=== PATIENT | female | born 1955 | race Caucasian/White ===

== ENCOUNTER → 2016-09-13 | Outpatient (CLI) | payer BC ==
--- NOTE | 2016-09-14 09:22 | MM ---
Reason for exam: screening (asymptomatic). Last mammogram was performed 1 year and 11 months ago. History: Patient is postmenopausal. Family history of breast cancer in paternal cousin. Physical Findings: A clinical breast exam by your physician is recommended on an annual basis and results should be correlated with mammographic findings. MG Screening Mammo w CAD Bilateral CC and MLO view(s) were taken. Prior study comparison: October 27, 2014, bilateral MG screening mammo w CAD. July 04, 2012, bilateral digital screening mammo w/CAD. The breast tissue is almost entirely fat. No significant changes when compared with prior studies. ASSESSMENT: Benign, BI-RAD 2 RECOMMENDATION: Routine screening mammogram of both breasts in 1 year.
== END | disposition home or self-care (01) ==
LOC: RADMAMWWP 08:28
PROVIDERS: ATTEND Internal Medicine
DX: Z12.31 Encounter for screening mammogram for malignant neoplasm of breast (principal)

== ENCOUNTER 2016-09-18 10:49 | Day surgery (SDC) | payer BC ==
[2016-09-15 10:48] VITALS: BMI 18.3
[~2016-09-18 10:49] MED LIST: LACTATED RINGERS 1,000 ML IV SCH; LIDOCAINE 1% 20 ML VIAL (10MG/ML) FOR IV START INTRADERMA PRN
[2016-09-18 11:51] VITALS: TEMP 97
[2016-09-18] MEDS ORDERED: PROPOFOL 10 MG/ML 20 ML VIAL IV ONE (12:41)
--- NOTE | 2016-09-18 12:46 | P.GSHP ---
History of Present Illness H&P Date: 09/18/16 Chief Complaint: GI bleed This 60-year-old female referred from Dr. Joyce. Patient presents today for colonoscopy. She's had evidence of GI bleed. Past Medical History Past Medical History: Hypertension Additional Past Medical History / Comment(s): HX NECK FRACTURE, currently taking antibiotics for sinus infection. GOUT History of Any Multi-Drug Resistant Organisms: None Reported Past Surgical History: Joint Replacement Additional Past Surgical History / Comment(s): LEFT SHOULDER REPLACEMENT Past Anesthesia/Blood Transfusion Reactions: No Reported Reaction Past Psychological History: No Psychological Hx Reported Smoking Status: Current some day smoker - Past Family History Brother(s) Family Medical History: Cancer Medications and Allergies Home Medications Medication Instructions Recorded Confirmed Type Multivitamins, Thera [Multivitamin] 1 each PO DAILY@1200 10/19/13 09/18/16 History Alendronate Sodium [Fosamax] 70 mg PO MO 11/06/15 09/18/16 History Azithromycin [Zithromax Z-pack] 250 mg PO DIRECTED 09/15/16 09/18/16 History Naproxen Sodium [Naproxen Sodium 500 mg PO BID PRN 09/15/16 09/18/16 History ER] Triamterene/Hydrochlorothiazid 1 each PO DAILY 09/15/16 09/18/16 History [Triamterene-Hctz 37.5-25 mg Tb] Allergies Allergy/AdvReac Type Severity Reaction Status Date / Time No Known Allergies Allergy Verified 09/18/16 11:46 Surgical - Exam Vital Signs Temp Pulse Resp BP Pulse Ox 97.0 F L 67 18 170/83 98 09/18/16 11:50 09/18/16 11:50 09/18/16 11:50 09/18/16 11:50 09/18/16 11:50 - General well developed, no distress - Eyes PERRL - ENT normal pinna - Neck no masses - Respiratory normal expansion - Cardiovascular Rhythm: regular - Abdomen Abdomen: soft, non tender Assessment and Plan Plan: GI bleed. We'll perform colonoscopy.
--- NOTE | 2016-09-18 13:05 | P.OP ---
Date of Procedure: 09/18/16 Preoperative Diagnosis: GI bleed Postoperative Diagnosis: Rectal polyp Incomplete colonoscopy Procedure(s) Performed: Colonoscopy Implants: Anesthesia: MAC Surgeon: Otoniel Stephenson Pathology: other (Rectal polyp) Condition: stable Disposition: PACU Indications for Procedure: Operative Findings: Description of Procedure: The patient's placed on the endoscopy table in the lateral position she received IV sedation. Digital rectal exam was performed which revealed no abnormalities. The flexible colonoscope was then placed patient anus and passed throughout colon. Scope could not pass beyond the sigmoid colon secondary to tortuosity valve. This point the scope was withdrawn. There were diverticuli noted. In the pediatric scope was inserted. Once again, the pediatric scope could not be passed beyond 30 cm due to tortuosity bowel. The scope was withdrawn. At the 20 cm dick there was a polyp seen this was removed the forcep. Scope was withdrawn for patient. Patient was scheduled for a barium enema.
[2016-09-18 13:14] VITALS: RESP 16
[2016-09-18 13:35] VITALS: BP 141/82; PULSE 65
== END 2016-09-18 14:01 | disposition home or self-care (01) ==
LOC: ORWHC2ENDO 10:49
PROVIDERS: ATTEND Surgery
DX: K62.1 Rectal polyp (principal); Q43.8 Other specified congenital malformations of intestine; I10 Essential (primary) hypertension; F17.200 Nicotine dependence, unspecified, uncomplicated; Z79.899 Other long term (current) drug therapy
CPT/HCPCS: 88305; 45331; J2704; 45380

== ENCOUNTER → 2016-09-25 | Outpatient (CLI) | payer BC ==
--- NOTE | 2016-09-25 13:40 | FL ---
EXAMINATION TYPE: FL barium enema w air contrast DATE OF EXAM: 09/25/2016 COMPARISON: EXAMINATION TYPE: FL barium enema w air contrast DATE OF EXAM: 09/25/2016 COMPARISON: NONE HISTORY: Incomplete colonoscopy TECHNIQUE: A double contrast barium enema study is performed. FINDINGS: Crime Lab Technician view of the abdomen shows overall non-obstructive bowel gas pattern. Severe scoliosi s is present. No suspicious filling defects are evident. No circumferential area of narrowing is present. The brooke cral space is normal. There is redundancy through the sigmoid colon. Couple of diverticuli without ac [place] diverticulitis are present. Reflux into the terminal ileum is evident. There is normal post void residual. IMPRESSION: Normal air-contrast barium enema study.
== END | disposition home or self-care (01) ==
LOC: RADFLMAIN 11:02
PROVIDERS: ATTEND Surgery
DX: K92.1 Melena (principal)
CPT/HCPCS: 74280

== ENCOUNTER → 2017-09-03 | Outpatient (CLI) | payer BC ==
--- NOTE | 2017-09-03 16:16 | US ---
EXAMINATION TYPE: US venous doppler duplex LE BI DATE OF EXAM: 09/03/2017 4:09 PM COMPARISON: NONE CLINICAL HISTORY: M79.661 Pain In Limb R22.41 Swelling. SIDE PERFORMED: Bilateral TECHNIQUE: The lower extremity deep venous system is examined utilizing real time linear array sonog pierre with graded compression, doppler sonography and color-flow sonography. VESSELS IMAGED: External Iliac Vein (EIV) Common Femoral Vein Deep Femoral Vein Greater Saphenous Vein * Femoral Vein Popliteal Vein Small Saphenous Vein * Proximal Calf Veins (* superficial vessels) Right Leg: Negative for DVT Left Leg: Negative for DVT Preliminary results phoned to Dr. Joyce's office immediately following exam. Spoke with Elvi. Grayscale, color doppler, spectral doppler imaging performed of the deep veins of the bilateral lowe r extremities. There is normal flow, compressibility, vascular waveforms. IMPRESSION: No ultrasound evidence for acute DVT in either lower extremity.
== END | disposition home or self-care (01) ==
LOC: RADUSWWP 15:30
PROVIDERS: ATTEND Internal Medicine
DX: M79.661 Pain in right lower leg (principal); R22.41 Localized swelling, mass and lump, right lower limb
CPT/HCPCS: 93970

== ENCOUNTER → 2018-03-15 | Outpatient (CLI) | payer BC ==
[2018-03-15 16:55] LABS: Folate, Serum >24.0 ng/mL
== END | disposition home or self-care (01) ==
LOC: LABWHC1 08:41
PROVIDERS: ATTEND Family Medicine
DX: Z00.00 Encounter for general adult medical examination without abnormal findings (principal)
CPT/HCPCS: 36415; 82607; 82746; 84207; 84425

== ENCOUNTER → 2018-04-01 | Outpatient (CLI) | payer BC ==
--- NOTE | 2018-04-01 09:10 | CT ---
EXAMINATION TYPE: CT chest wo con DATE OF EXAM: 04/01/2018 COMPARISON: NONE HISTORY: Sarcoidosis CT DLP: 96.6 mGycm. Automated Exposure Control for Dose Reduction was Utilized. TECHNIQUE: CT scan of the thorax is performed without IV contrast. FINDINGS: LUNGS: There are few scattered subcentimeter pulmonary nodules. For example within the right lung ape x there is a solid pulmonary nodule on series 4 image 3 measuring 4 mm. Additional 2 mm pulmonary nod ule in the right upper lobe is present on image 16. 2 mm pulmonary nodule in the superior segment of the left lower lobe is present on image 19. Remainder the lungs are clear without focal consolidation or pleural effusion. No interseptal lobular thickening is seen. Very minimal centrilobular emphysematous change is noted. MEDIASTINUM: Lack of IV contrast is noted to limit evaluation for mediastinal and especially hilar ad enopathy. There are no definitive greater than 1 cm hilar or mediastinal lymph nodes. No cardiomega ly or pericardial effusion is seen. Ascending thoracic aorta is within normal limits measuring 3.5 cm . OTHER: Hyperdensity in the medullary measurements on the left suggests medullary sponge kidney. There is slight decreased attenuation of the hepatic parenchyma although this does not meet criteria for h epatic steatosis at this time. There is a levoscoliotic curvature of the thoracic spine with mild multilevel degenerative changes. T here is a small hiatal hernia present. IMPRESSION: 1. No evidence of mediastinal adenopathy. There are few scattered subcentimeter pulmonary nodules enrique t are nonspecific. If these do relate to sarcoidosis this with classify the sarcoidosis is stage III with parenchymal lung disease only, however lung nodules can be seen without sarcoidosis. No pulmonar y fibrosis is identified. Follow-up for pulmonary nodules of this size is recommended in 12 months to determine stability. 2. Small hiatal hernia, levoscoliosis of the thoracic spine and findings suggesting medullary sponge kidney.
== END | disposition home or self-care (01) ==
LOC: RADCTMAIN 07:14
PROVIDERS: ATTEND Internal Medicine Rheumatology
DX: R91.8 Other nonspecific abnormal finding of lung field (principal); K44.9 Diaphragmatic hernia without obstruction or gangrene; D86.9 Sarcoidosis, unspecified
CPT/HCPCS: 71250

== ENCOUNTER → 2019-07-28 | Outpatient (CLI) | payer BC | END | disposition home or self-care (01) | LOC: LABWHC1 07:57 | PROVIDERS: ATTEND Internal Medicine Gastroenterology | DX: U07.1 COVID-19 (principal) | CPT/HCPCS: 87635 ==

== ENCOUNTER 2019-07-30 07:06 | Day surgery (SDC) | payer BC ==
[2019-07-28 12:59] VITALS: BMI 16.6
[~2019-07-30 07:06] MED LIST changes: +LIDOCAINE 1% (10MG/ML) FOR IV START INTRADERMA PRN; -LIDOCAINE 1% 20 ML VIAL (10MG/ML) FOR IV START INTRADERMA PRN
[2019-07-30 07:34] VITALS: TEMP 97.5
[2019-07-30] MEDS ORDERED: LIDOCAINE 1% INJ 10MG/ML (20 ML MDV) ONE (08:11)
[2019-07-30] MEDS ORDERED: PROPOFOL 10 MG/ML 20 ML VIAL IV ONE (08:11)
--- NOTE | 2019-07-30 08:24 | P.PCN ---
Date of Procedure: 07/30/19 Procedure(s) Performed: BRIEF HISTORY: Patient is a 63-year-old, pleasant, female, scheduled for an upper endoscopy as a part of evaluation of dysphagia for the last 1 year duration. Her symptoms have been progressively getting worse in the cervical spine surgery. She has symptoms with solids and occasionally with liquids with some passive regurgitation.. PROCEDURE PERFORMED: Esophagogastroduodenoscopy with biopsy. PREOPERATIVE DIAGNOSIS: Dysphagia/passive regurgitation . IV sedation per anesthesia. PROCEDURE: After informed consent was obtained, the patient was brought into the endoscopy unit. IV sedation was administered by Anesthesia under continuous monitoring. Initially the Olympus GIF-140 video endoscope was inserted into the mouth. Esophagus intubated without any difficulty. It was gradually advanced into the stomach and duodenum and carefully examined. The bulb and the second p art of the duodenum and mild scalloping of the mucosa and hence biopsies were done from this area to rule out celiac disease. The scope at this time was withdrawn to the stomach, adequately insufflated with air, and upon careful examination, mucosa of the antrum, had mild gastritis and biopsies for H. pylori were done. The body, cardia and the fundus appeared normal. The scope was then withdrawn into the esophagus. The GE junction was located at 39 cm from the incisors. Small sliding type hiatal hernia noted. There were 2 erosions at the GE junction consistent with LA grade B reflux esophagitis. The rest of the esophagus appeared normal. Ther the patient tolerated the procedure well. IMPRESSION: 1. Small hiatal hernia and LA grade B reflux esophagitis. No evidence of esophageal stricture. 2. Mild antral gastritis. 3. Mild scalloping of the mucosa in the duodenum status post biopsy to rule out celiac disease. RECOMMENDATIONS: The findings of this examination were discussed with the patient as well as a family. She was advised to follow with the biopsy results. She'll be given a prescription for Prilosec 20 mg daily to be taken half hour before breakfast and follow antireflux measures. She will be seen in the office in 4 weeks..
[2019-07-30 08:52] VITALS: BP 132/78; PULSE 78; RESP 18
== END 2019-07-30 09:01 | disposition home or self-care (01) ==
LOC: ORWHC2ENDO 07:06
PROVIDERS: ATTEND Internal Medicine Gastroenterology
DX: K29.50 Unspecified chronic gastritis without bleeding (principal); K22.8 Other specified diseases of esophagus; K44.9 Diaphragmatic hernia without obstruction or gangrene; K22.10 Ulcer of esophagus without bleeding; K21.0 Gastro-esophageal reflux disease with esophagitis; I10 Essential (primary) hypertension; E46 Unspecified protein-calorie malnutrition; R53.1 Weakness; M10.9 Gout, unspecified; I49.1 Atrial premature depolarization; F17.210 Nicotine dependence, cigarettes, uncomplicated; Z68.1 Body mass index [BMI] 19.9 or less, adult; Z79.899 Other long term (current) drug therapy; Z87.81 Personal history of (healed) traumatic fracture; Z98.890 Other specified postprocedural states
CPT/HCPCS: 88305; 43239; J2001; J2704

== ENCOUNTER → 2019-10-30 | Outpatient (CLI) | payer BC ==
--- NOTE | 2019-10-30 15:33 | CT ---
EXAMINATION TYPE: CT chest w con DATE OF EXAM: 10/30/2019 COMPARISON: CT chest 04/01/2018 HISTORY: difficulty breathing, weakness, sarcoidosis of lung CT DLP: 165.9 mGycm Automated exposure control for dose reduction was used. CONTRAST: CT scan of the chest is performed with IV Contrast, patient injected with 90 mL of Isovue 300. FINDINGS: LUNGS: There is a redemonstrated 4 mm solid pulmonary nodule of the right upper lobe at the apex (4:1 0). There is a superior left lower lobe 3 mm solid pulmonary nodule redemonstrated (4:23). The previo usly demonstrated 2 mm nodule in the right upper lobe is not discretely seen on current exam. No new pulmonary nodules. Pleural scarring of the right apex. The lungs are otherwise clear with minimal rig ht basilar atelectasis. There is no pleural effusion or pneumothorax seen. The tracheobronchial tree is patent. MEDIASTINUM: There are no greater than 1 cm hilar or mediastinal lymph nodes. No pericardial effusion is seen. Heart size normal. Thoracic aortic size normal. OTHER: Fatty liver. Small hiatal hernia. Multilevel fixation changes of the thoracic spine partially visualized. Leftward curvature of the thoracic spine and incompletely visualized rightward curvature of the lumbar spine. IMPRESSION: 1. Right upper lobe 4 mm and left lower lobe 3 mm pulmonary nodules unchanged versus 04/01/2018 CT comp arison. Previously described 2 mm nodule in the right upper lobe not seen on prior exam. 2. No evidence of lymphadenopathy or fibrosis. 3. No acute process of the chest. 4. Fatty liver.
== END | disposition home or self-care (01) ==
LOC: RADCTMAIN 11:05
PROVIDERS: ATTEND Family Medicine
DX: R91.8 Other nonspecific abnormal finding of lung field (principal); D86.0 Sarcoidosis of lung
CPT/HCPCS: 71260; Q9967

== ENCOUNTER → 2021-03-16 | Outpatient (CLI) | payer MEDICARE ==
--- NOTE | 2021-03-16 20:06 | BD ---
EXAMINATION TYPE: Axial Bone Density DATE OF EXAM: 03/16/2021 COMPARISON: 2014 CLINICAL HISTORY: Postmenopausal screening Height: 63 Weight: 105.0 FRAX RISK QUESTIONS: Alcohol (3 or more units per day): no Family History (Parent hip fracture): no Glucocorticoids (More than 3mos): no (Ex: prednisone, prednisolone, methylprednisolone, dexamethasone, and hydrocortisone). History of Fracture in Adulthood: yes Secondary Osteoporosis: 1. Type 1 Diabetes: no 2. Hyperthyroidism: no 3. Menopause before 45: no 4. Malnutrition: no 5. Chronic liver disease: no Rheumatoid Arthritis: yes Current Tobacco Use: yes RISK FACTORS HISTORY OF: Spine Fracture: C-spine Surgery to Spine/Hip(right/left)/Wrist (right/left): C-spine When: 2019 Family History of Osteoporosis: no Active: yes Diet low in dairy products/other sources of calcium: yes Postmenopausal woman: yes Lost more than 2 inches in height since high school: yes MEDICATIONS: Prilosec, blood pressure Osteoporosis Medications: fosamax How Long: on and off for 3 years Additional Medications: Additional History: EXAM MEASUREMENTS: Bone mineral densitometry was performed using the [employer]idebt System. Bone mineral density as measured about the Lumbar spine is: ----- L1-L4(G/cm2): 1.259 T Score Values are as follows: ----- L2: 0.8 ----- L3: 0.4 ----- L4: 0.2 ----- L1-L4: 0.7 Bone mineral density has: decreased -7.7 % since study of: 11.19.2014 Bone mineral density about the R hip (g/cm2): 0.924 Bone mineral density about the L hip (g/cm2): -0890 T Score values are as follows: -----R Neck: -0.8 -----L Neck: -1.1 -----R Total: -2.0 -----L Total: -1.8 Bone mineral density has: decreased -20.2 % since study of: 11.19.2014 IMPRESSION: Osteopenia (T Score between -2.5 and -1). There is slightly increased risk of fracture and the patient may be considered for treatment. Re-Screen 2-5 years. NOTE: T-SCORE=SD OF THE YOUNG ADULT MEAN.
== END | disposition home or self-care (01) ==
LOC: RADMAMWWP 15:46
PROVIDERS: ATTEND Family Medicine
DX: Z12.31 Encounter for screening mammogram for malignant neoplasm of breast (principal); M81.0 Age-related osteoporosis without current pathological fracture; M85.80 Other specified disorders of bone density and structure, unspecified site
CPT/HCPCS: 77063; 77067; 77080

== ENCOUNTER 2022-06-23 11:44 | Day surgery (SDC) | payer MEDICARE ==
[~2022-06-23 11:44] MED LIST changes: +ONDANSETRON 4 MG/2 ML VIAL IVP PRN
[2022-06-23 13:10] VITALS: TEMP 97
[2022-06-23] MEDS ORDERED: LIDOCAINE 2% INJ 20 MG/ML (2 ML VIAL) ONE (13:54)
[2022-06-23] MEDS ORDERED: PROPOFOL 10 MG/ML 20 ML VIAL IV ONE (13:54)
--- NOTE | 2022-06-23 14:35 | P.PCN ---
Date of Procedure: 06/23/22 Procedure(s) Performed: BRIEF HISTORY: Patient is a 66-year-old pleasant white female scheduled for an elective colonoscopy as a part of screening for colon cancer. PROCEDURE PERFORMED: Colonoscopy. PREOPERATIVE DIAGNOSIS: Screening for colon cancer. IV sedation per Anesthesia. PROCEDURE: After informed consent was obtained, the patient, was brought into the endoscopy unit. IV sedation was administered by Anesthesia under continuous monitoring. Digital rectal examination was normal. Initially the Olympus CF-160 flexible video colonoscope was then inserted in the rectum, gradually advanced into the sigmoid: Further advancement was not possible. The pediatric colonoscopy was then introduced into the rectum and could not be advanced further in the sigmoid colon. At this time an upper endoscopy was introduced into the rectum and with gentle manipulation and abdominal pressure was gradually advanced into the cecum. Careful examination was performed as the scope was gradually being withdrawn. Ileocecal valve and the appendiceal orifice were visualized and appeared normal. Prep was excellent. Mucosa of the cecum, ascending colon, transverse colon, descending colon, sigmoid colon, and rectum appeared normal. moderate sigmoid diverticulosis. Retroflexion was performed in the rectum and no lesions were seen. The patient tolerated the procedure well. IMPRESSION: Scattered sigmoid diverticulosis No evidence of colorectal neoplasia RECOMMENDATIONS: Findings of this examination were discussed with the patient as well as a family.. she was advised to have a repeat screening colonoscopy in 10 years.
[2022-06-23 14:59] VITALS: BP 138/74; PULSE 76; RESP 20
== END 2022-06-23 15:45 | disposition home or self-care (01) ==
LOC: ORWHC2ENDO 11:44
PROVIDERS: ATTEND Internal Medicine Gastroenterology
DX: Z12.11 Encounter for screening for malignant neoplasm of colon (principal); K57.30 Diverticulosis of large intestine without perforation or abscess without bleeding; I10 Essential (primary) hypertension; F17.200 Nicotine dependence, unspecified, uncomplicated; K21.9 Gastro-esophageal reflux disease without esophagitis; Z79.899 Other long term (current) drug therapy
CPT/HCPCS: J2704; J2001; G0121; 45378

== ENCOUNTER → 2022-07-19 | Outpatient (CLI) | payer MEDICARE ==
--- NOTE | 2022-07-20 08:58 | MM ---
Reason for Exam: Screening (asymptomatic). Last mammogram was performed 1 year(s) and 4 month(s) ago. Patient History: Menarche at age 14. First Full-Term at age 23. Postmenopausal. Patient has history of breast feeding. Paternal cousin had breast cancer, age 40. Maternal cousin had breast cancer, age 40. Risk Values: Rebecca 5 year model risk: 1.5%. NCI Lifetime model risk: 5.6%. Prior Study Comparison: 07/04/2012 Bilateral Screening Mammogram, [facility]. 10/27/2014 Bilateral Screening Mammogram, [facility]. 09/13/2016 Bilateral Screening Mammogram, [facility]. 03/16/2021 Bilateral Screening Mammogram, [facility]. Tissue Density: There are scattered fibroglandular densities. Findings: Analyzed By CAD. There is no suspicious group of microcalcifications or new suspicious mass in either breast. Overall Assessment: Negative, BI-RAD 1 Management: Screening Mammogram of both breasts in 1 year. A clinical breast exam by your physician is recommended on an annual basis and results should be correlated with mammographic findings. Electronically signed and approved by: Vincent Clement M.D. Radiologis
== END | disposition home or self-care (01) ==
LOC: RADMAMWWP 09:57
PROVIDERS: ATTEND Family Medicine
DX: Z12.31 Encounter for screening mammogram for malignant neoplasm of breast (principal); Z78.0 Asymptomatic menopausal state; Z80.3 Family history of malignant neoplasm of breast
CPT/HCPCS: 77063; 77067

== ENCOUNTER → 2022-10-27 | Outpatient (CLI) | payer MEDICARE ==
--- NOTE | 2022-10-27 17:02 | US ---
EXAMINATION TYPE: US venous doppler duplex LE RT DATE OF EXAM: 10/27/2022 3:57 PM COMPARISON: None CLINICAL INDICATION: Female, 67 years old with history of R09.89 ABSENT DORSALIS PEDIS PULSE; Patient is not on blood thinners. No redness or swelling. SIDE PERFORMED: Right TECHNIQUE: The lower extremity deep venous system is examined utilizing real time linear array sonog pierre with graded compression, doppler sonography and color-flow sonography. VESSELS IMAGED: Common Femoral Vein Deep Femoral Vein Greater Saphenous Vein * Femoral Vein Popliteal Vein Small Saphenous Vein * Proximal Calf Veins Posterior tibial veins (* superficial vessels) Right Leg: Negative for DVT IMPRESSION: No evidence for DVT within the right lower extremity.
== END | disposition home or self-care (01) ==
LOC: RADUSWWP 15:35
PROVIDERS: ATTEND Family Medicine
DX: R09.89 Other specified symptoms and signs involving the circulatory and respiratory systems (principal)

== ENCOUNTER → 2023-01-16 | Outpatient (CLI) | payer MEDICARE ==
--- NOTE | 2023-01-16 15:01 | US ---
EXAMINATION TYPE: US arterial LE single level DATE OF EXAM: 01/16/2023 2:51 PM CLINICAL INDICATION: Female, 67 years old with history of R79.9 ABNORMAL FINDING OF BLOOD CHEMISTRY,, R93.1; on physical exam decreased right pedal pulses History of: Smoker: current Hypertension: y Diabetic: n Hyperlipidemia: n TIA/CVA: n Previous Vascular Surgery: n CAD: n WI: n Vascular Ulcers: n Claudication: n Gangrene: n Doppler Waveforms: Right: Multiphasic Left: Multiphasic Right Brachial Pressure: 139 Left Brachial Pressure: 141 Ankle-Brachial Indices: Right: 1.1 Left: 1.1 Toe Brachial Indices: Right: 0.6 Left: 0.6 IMPRESSION: Normal ankle-brachial indices bilaterally.
== END | disposition home or self-care (01) ==
LOC: RADUSWWP 14:23
PROVIDERS: ATTEND Family Medicine
DX: R79.9 Abnormal finding of blood chemistry, unspecified (principal); R93.1 Abnormal findings on diagnostic imaging of heart and coronary circulation
CPT/HCPCS: 93922

== ENCOUNTER → 2023-10-25 | Outpatient (CLI) | payer MEDICARE ==
--- NOTE | 2023-10-26 08:41 | BD ---
EXAMINATION TYPE: Axial Bone Density DATE OF EXAM: 10/25/2023 CLINICAL HISTORY: 68 years old Female. ICD-10 CODE: M81.0 OSTEOPOROSIS Height: 63in Weight: 100lb FRAX RISK QUESTIONS: History of Fracture in Adulthood: yes Secondary Osteoporosis: Rheumatoid Arthritis: yes Current Tobacco Use: yes RISK FACTORS HISTORY OF: Spine Fracture: cervical fracture When: 2019 Surgery to Spine/Hip(right/left)/Wrist (right/left): cervical When: 2019 MEDICATIONS: EXAM MEASUREMENTS: Bone mineral densitometry was performed using the [employer] System. Bone mineral density as measured about the Lumbar spine is: ----- L1-L4(G/cm2): 1.187 T Score Values are as follows: ----- L1: 0.0 ----- L2: 1.1 ----- L3: 0.2 ----- L4: -0.9 ----- L1-L4: 0.1 Z Score Values are as follows: ----- L1: 2.3 ----- L2: 3.4 ----- L3: 2.4 ----- L4: 1.4 ----- L1-L4: 2.3 Bone mineral density has: Decreased -11.5% since study of: 03-16-21 Bone mineral density about the R hip (g/cm2): 0.691 Bone mineral density about the L hip (g/cm2): 0.700 T Score values are as follows: -----R Neck: -1.6 -----L Neck: -1.8 -----R Total: -2.5 -----L Total: -2.4 Z Score values are as follows: -----R Neck: 0.3 -----L Neck: 0.2 -----R Total: -0.8 -----L Total: -0.7 Bone mineral density has: Decreased -9.7% since study of: 03-16-21 FRAX%s: The graph provided illustrates a 18.3% chance for a major osteoporotic fx and a 5.2% chance f or the hips probability for fx in 10 years time. IMPRESSION: Osteopenia (T Score between -2.5 and -1). There is slightly increased risk of fracture and the patient may be considered for treatment. Re-Screen 2-5 years. NOTE: T-SCORE=SD OF THE YOUNG ADULT MEAN.
--- NOTE | 2023-11-20 11:44 | MM ---
Reason for Exam: Screening (asymptomatic). Last mammogram was performed 1 year(s) and 4 month(s) ago. Patient History: Menarche at age 14. First Full-Term at age 23. Postmenopausal. Patient has history of breast feeding. Paternal cousin had breast cancer, age 40. Maternal cousin had breast cancer, age 40. Risk Values: Ayesha 5 year model risk: 1.5%. NCI Lifetime model risk: 5.2%. Prior Study Comparison: 09/13/2016 Bilateral Screening Mammogram, [facility]. 03/16/2021 Bilateral Screening Mammogram, [facility]. 07/19/2022 Bilateral MG 3D screening mammo w/cad, [facility]. Tissue Density: There are scattered areas of fibroglandular density. Findings: Analyzed By CAD. There is no suspicious group of microcalcifications or new suspicious mass in either breast. Overall Assessment: Negative, BI-RAD 1 Management: Screening Mammogram of both breasts in 1 year. 1. Screening Mammogram Bilateral in 1 Year . 2. Patient should continue monthly self-breast exams. A clinical breast exam by your physician is recommended on an annual basis. 3. This exam should not preclude additional follow-up of suspicious palpable abnormalities. NOTE ON AYESHA SCORES AND LIFETIME RISK: 1. A Ayesha score greater than 3% is considered moderate risk. If this is the case, consider specialist referral to assess eligibility for a risk reducing agent. 2. If overall lifetime risk for the development of breast cancer is 20% or higher, the patient may qualify for future screening with alternating mammogram and breast MRI. Electronically signed and approved by: Ariel Santamaria M.D. Radiologist
== END | disposition home or self-care (01) ==
LOC: RADBDWWP 14:56
PROVIDERS: ATTEND Family Medicine
DX: Z12.31 Encounter for screening mammogram for malignant neoplasm of breast (principal); R92.323 Mammographic fibroglandular density, bilateral breasts; M85.89 Other specified disorders of bone density and structure, multiple sites; Z78.0 Asymptomatic menopausal state; Z80.3 Family history of malignant neoplasm of breast
CPT/HCPCS: 77063; 77067; 77080

== ENCOUNTER 2024-04-10 12:56 | Inpatient (IN) | payer MEDICARE ==
--- NOTE | 2024-04-10 13:48 | ED ---
Recheck HPI - General Chief Complaint: Recheck/Abnormal Lab/Rx Stated Complaint: Potassium High- sent from Dr Trejo Time Seen by Provider: 04/10/24 13:10 Source: patient, RN notes reviewed Mode of arrival: ambulatory Limitations: no limitations - History of Present Illness Initial Comments: This is a 68-year-old female presenting to the emergency department for abnormal labs. Patient states that she had a 6-month checkup completed yesterday and was instructed to report to Emergency Department for elevated potassium of 6.4. Currently patient is asymptomatic denying chest pain, heart palpitations, muscle weakness or fatigue. On lisinopril and hydrochlorothiazide for hypertension. States that she has had elevated potassium in the past however has never been this elevated before. - Related Data Home Medications Medication Instructions Recorded Confirmed Omeprazole [PriLOSEC] 20 mg PO DAILY 06/21/22 04/10/24 Boswellia, Turmeric, Tart Campos 1 cap PO DAILY 04/10/24 04/10/24 Supplement Dandelion Root 525 mg PO DAILY 04/10/24 04/10/24 Bridgette Root 550mg 550 mg PO DAILY 04/10/24 04/10/24 Lifetones (Uric Acid Support) 3 cap PO TID 04/10/24 04/10/24 Supplement Moringa 2,000 mg PO DAILY 04/10/24 04/10/24 allopurinoL [Zyloprim] 100 mg PO DAILY 04/10/24 04/10/24 hydroCHLOROthiazide [Hydrodiuril] 25 mg PO DAILY 04/10/24 04/10/24 lisinopriL [Zestril] 2.5 mg PO DAILY 04/10/24 04/10/24 Allergies Allergy/AdvReac Type Severity Reaction Status Date / Time No Known Allergies Allergy Verified 04/10/24 15:28 Review of Systems ROS Statement: Those systems with pertinent positive or pertinent negative responses have been documented in the HPI. ROS Other: All systems not noted in ROS Statement are negative. Past Medical History Past Medical History: Hypertension Additional Past Medical History / Comment(s): NECK FRACTURE. CERVICAL FUSION(2018 [facility]) History of Any Multi-Drug Resistant Organisms: None Reported Past Surgical History: Joint Replacement Additional Past Surgical History / Comment(s): LEFT SHOULDER REPLACEMENT Past Anesthesia/Blood Transfusion Reactions: No Reported Reaction Additional Past Anesthesia/Blood Transfusion Reaction / Comment(s): was hallucinating after cervical fusion Past Psychological History: No Psychological Hx Reported Smoking Status: Current every day smoker - Past Family History Brother(s) Family Medical History: Cancer General Exam - General Exam Comments Initial Comments: Visual Physical Exam Vital signs reviewed General: Well-appearing, nontoxic, no acute distress. Head: Normocephalic, atraumatic Eyes: PERRLA, EOMI ENT: Airway patent Chest: Nonlabored breathing Skin: No visual rash, normal skin tone Neuro: Alert and oriented 3 Musculoskeletal: No gross abnormalities Limitations: no limitations ENT exam: Present: normal exam, mucous membranes moist Neck exam: Present: normal inspection. Absent: tenderness, meningismus, lymphadenopathy Respiratory exam: Present: normal lung sounds bilaterally. Absent: respiratory distress, wheezes, rales, rhonchi, stridor Cardiovascular Exam: Present: regular rate, normal rhythm, normal heart sounds. Absent: systolic murmur, diastolic murmur, rubs, gallop, clicks GI/Abdominal exam: Present: soft, normal bowel sounds. Absent: distended, tenderness, guarding, rebound, rigid Extremities exam: Present: normal inspection, full ROM, normal capillary refill. Absent: tenderness, pedal edema, joint swelling, calf tenderness Back exam: Present: normal inspection Course Vital Signs 04/10/24 04/10/24 04/10/24 13:10 15:45 16:02 Temperature 97.7 F 99.1 F Pulse Rate 78 73 Pulse Rate [ 72 [employer] ] Respiratory 16 17 Rate Blood Pressure 152/86 125/74 O2 Sat by Pulse 99 100 Oximetry 04/10/24 04/10/24 18:09 20:40 Temperature 97.6 F Pulse Rate 87 77 Pulse Rate [ [employer] ] Respiratory 17 18 Rate Blood Pressure 99/66 101/73 O2 Sat by Pulse 98 97 Oximetry Medical Decision Making - Medical Decision Making Was pt. sent in by a medical professional or institution (, PA, RETAIL ADVISOR, urgent care, hospital, or retirement...) When possible be specific @ -No Did you speak to anyone other than the patient for history (EMS, parent, family, police, friend...)? What history was obtained from this source @ -No Did you review nursing and triage notes (agree or disagree)? Why? @ -I reviewed and agree with nursing and triage notes Were old charts reviewed (outside hosp., previous admission, EMS record, old EKG, old radiological studies, urgent care reports/EKG's, retirement records)? Report findings @ -No old charts were reviewed Differential Diagnosis (chest pain, altered mental status, abdominal pain women, abdominal pain men, vaginal bleeding, weakness, fever, dyspnea, syncope, headache, dizziness, GI bleed, back pain, seizure, CVA, palpatations, mental health, musculoskeletal)? @ -Differential Weakness: Hypoglycemia, shock, sepsis, hyponatremia, anemia, infection, CA, ETOH, adverse medicine reaction, overdose, stroke, this is not meant to be an all-inclusive list. EKG interpreted by me (3pts min.). @ -Completed at 1456 sinus rhythm with a ventricular rate of 69, SC interval 133, QRS 121, QTc 416. X-rays interpreted by me (1pt min.). @ -None done CT interpreted by me (1pt min.). @ -None done U/S interpreted by me (1pt. min.). @ -None done What testing was considered but not performed or refused? (CT, X-rays, U/S, labs)? Why? @ -None What meds were considered but not given or refused? Why? @ -None Did you discuss the management of the patient with other professionals (vance mcdonald i.eAlta Olson, PA, RETAIL ADVISOR, lab, RT, psych nurse, psychiatric social worker, environmental protection forester, teacher, child support officer, case mgr)? Give summary @ -[facility] for admission- accepted. Was smoking cessation discussed for >3mins.? @ -No Was critical care preformed (if so, how long)? @ -No Were there social determinants of health that impacted care today? How? (Homelessness, low income, unemployed, alcoholism, drug addiction, transportation, low edu. Level, literacy, decrease access to med. care, mcc, rehab)? @ -No Was there de-escalation of care discussed even if they declined (Discuss DNR or withdrawal of care, Hospice)? DNR status @ -No What co-morbidities impacted this encounter? (DM, HTN, Smoking, COPD, CAD, Cancer, CVA, ARF, Chemo, Hep., AIDS, mental health diagnosis, sleep apnea, morbid obesity)? @ -None Was patient admitted / discharged? Hospital course, mention meds given and route, prescriptions, significant lab abnormalities, going to OR and other pertinent info. @ -Admitted. 64-year-old female presenting with abnormal labs. My evaluation patient just coming no signs acute distress. Vitals are stable. EKG sinus rhythm with no signs of hyperacute peaked T waves. Patient's labs remarkable for hyperkalemia with a potassium of 6.3 in addition to elevated creatinine 1.34 and decreased GFR of 41. Patient is provided with IV insulin and dextrose and will be mated to internal medicine to started on low Klima in the morning for treatment of hyperkalemia. Patient admitted to [facility] hospitalist team. Case discussed with Dr. Jimenez Undiagnosed new problem with uncertain prognosis? @ -No Drug Therapy requiring intensive monitoring for toxicity (Heparin, Nitro, Insulin, Cardizem)? @ -No Were any procedures done? @ -No Diagnosis/symptom? @ -Hyperkalemia Acute, or Chronic, or Acute on Chronic? @ -Acute Uncomplicated (without systemic symptoms) or Complicated (systemic symptoms)? @ -Uncomplicated Side effects of treatment? @ -No Exacerbation, Progression, or Severe Exacerbation? @ -No Poses a threat to life or bodily function? How? (Chest pain, USA, CA, pneumonia, PE, COPD, DKA, ARF, appy, cholecystitis, CVA, Diverticulitis, Homicidal, Suicidal, threat to staff... and all critical care pts) @ -Yes, electrolyte abnormalities can cause cardiac arrhythmia and potential tremaine th - Lab Data Result diagrams: 04/11/24 06:58 04/11/24 06:58 Lab Results 04/10/24 04/10/24 04/10/24 Range/Units 13:42 13:42 13:42 WBC 8.0 (3.8-10.6) k/uL RBC 3.50 L (3.80-5.40) m/uL Hgb 11.0 L (11.4-16.0) gm/dL Hct 34.1 (34.0-46.0) % MCV 97.5 (80.0-100.0) fL MCH 31.5 (25.0-35.0) pg MCHC 32.3 (31.0-37.0) g/dL RDW 14.9 (11.5-15.5) % Plt Count 276 (150-450) k/uL MPV 8.3 Neutrophils % 62 % Lymphocytes % 27 % Monocytes % 5 % Eosinophils % 3 % Basophils % 0 % Neutrophils # 5.0 (1.3-7.7) k/uL Lymphocytes # 2.2 (1.0-4.8) k/uL Monocytes # 0.4 (0-1.0) k/uL Eosinophils # 0.3 (0-0.7) k/uL Basophils # 0.0 (0-0.2) k/uL Sodium 141 (137-145) mmol/L Potassium 6.3 H* (3.5-5.1) mmol/L Chloride 109 H (98-107) mmol/L Carbon Dioxide 23 (22-30) mmol/L Anion Gap 9 mmol/L BUN 42 H (7-17) mg/dL Creatinine 1.34 H (0.52-1.04) mg/dL Est GFR (CKD-EPI)AfAm 47 (>60 ml/min/1.73 sqM) Est GFR (CKD-EPI)NonAf 41 (>60 ml/min/1.73 sqM) Glucose 90 (74-99) mg/dL Calcium 10.1 (8.4-10.2) mg/dL Magnesium 2.0 (1.6-2.3) mg/dL Total Bilirubin 0.4 (0.2-1.3) mg/dL AST 32 (14-36) U/L ALT 17 (4-34) U/L Alkaline Phosphatase 93 (38-126) U/L Total Protein 7.3 (6.3-8.2) g/dL Albumin 4.6 (3.5-5.0) g/dL 04/10/24 Range/Units 16:51 WBC (3.8-10.6) k/uL RBC (3.80-5.40) m/uL Hgb (11.4-16.0) gm/dL Hct (34.0-46.0) % MCV (80.0-100.0) fL MCH (25.0-35.0) pg MCHC (31.0-37.0) g/dL RDW (11.5-15.5) % Plt Count (150-450) k/uL MPV Neutrophils % % Lymphocytes % % Monocytes % % Eosinophils % % Basophils % % Neutrophils # (1.3-7.7) k/uL Lymphocytes # (1.0-4.8) k/uL Monocytes # (0-1.0) k/uL Eosinophils # (0-0.7) k/uL Basophils # (0-0.2) k/uL Sodium 140 (137-145) mmol/L Potassium 4.8 (3.5-5.1) mmol/L Chloride 109 H (98-107) mmol/L Carbon Dioxide 23 (22-30) mmol/L Anion Gap 8 mmol/L BUN 40 H (7-17) mg/dL Creatinine 1.37 H (0.52-1.04) mg/dL Est GFR (CKD-EPI)AfAm 46 (>60 ml/min/1.73 sqM) Est GFR (CKD-EPI)NonAf 40 (>60 ml/min/1.73 sqM) Glucose 64 L (74-99) mg/dL Calcium 9.8 (8.4-10.2) mg/dL Magnesium (1.6-2.3) mg/dL Total Bilirubin 0.4 (0.2-1.3) mg/dL AST 30 (14-36) U/L ALT 16 (4-34) U/L Alkaline Phosphatase 92 (38-126) U/L Total Protein 6.8 (6.3-8.2) g/dL Albumin 4.2 (3.5-5.0) g/dL Disposition Clinical Impression: Hyperkalemia Disposition: ADMITTED IP TO THIS [facility] Condition: Stable Decision to Admit Reason: Admit from EC Decision Date: 04/10/24 Decision Time: 16:25
[2024-04-10 13:54] LABS: Basophils % (A) 0 %; Eosinophils # (A) 0.3 k/uL (0-0.7); Eosinophils % (A) 3 %; HCT 34.1 % (34.0-46.0); Lymphocytes # (A) 2.2 k/uL (1.0-4.8); Lymphocytes % (A) 27 %; MCH 31.5 pg (25.0-35.0); MCHC 32.3 g/dL (31.0-37.0); MCV 97.5 fL (80.0-100.0); Mean Platelet Volume 8.3; Monocytes # (A) 0.4 k/uL (0-1.0); Monocytes % (A) 5 %; Neutrophils % (A) 62 %; Platelet Count 276 k/uL (150-450); RDW 14.9 % (11.5-15.5)
[2024-04-10 14:05] LABS: ALT 17 U/L (4-34); AST 32 U/L (14-36); African American GFR (CKD) 47 (>60 ml/min/1.73 sqM); Albumin 4.6 g/dL (3.5-5.0); Alkaline Phosphatase 93 U/L (38-126); Anion Gap 9 mmol/L; Blood Urea Nitrogen 42 mg/dL (7-17); Calcium 10.1 mg/dL (8.4-10.2); Carbon Dioxide 23 mmol/L (22-30); Chloride 109 mmol/L (98-107); Glucose 90 mg/dL (74-99); Non-African American GFR(CKD) 41 (>60 ml/min/1.73 sqM); Sodium 141 mmol/L (137-145); Total Bilirubin 0.4 mg/dL (0.2-1.3); Total Protein 7.3 g/dL (6.3-8.2)
[2024-04-10 14:10] LABS: Potassium 6.3 mmol/L (3.5-5.1)
[2024-04-10] MEDS: DEXTROSE 50% SYRINGE 50 ML IVP STA (15:49)
[2024-04-10] MEDS: INSULIN REGULAR 100 UNIT/ML VIAL (IV) IV ONE (15:58)
[2024-04-10] MEDS ORDERED: NALOXONE 0.4 MG/ML 1 ML VIAL IV PRN (16:23)
[2024-04-10] MEDS ORDERED: ACETAMINOPHEN TAB 325 MG TAB PO PRN (16:23)
[2024-04-10 18:39] LABS: Chloride 109 mmol/L (98-107)
[2024-04-10 18:41] LABS: African American GFR (CKD) 46 (>60 ml/min/1.73 sqM); Anion Gap 8 mmol/L; Blood Urea Nitrogen 40 mg/dL (7-17); Calcium 9.8 mg/dL (8.4-10.2); Carbon Dioxide 23 mmol/L (22-30); Glucose 64 mg/dL (74-99); Non-African American GFR(CKD) 40 (>60 ml/min/1.73 sqM); Potassium 4.8 mmol/L (3.5-5.1); Sodium 140 mmol/L (137-145); Total Protein 6.8 g/dL (6.3-8.2)
[2024-04-10 18:42] LABS: ALT 16 U/L (4-34); AST 30 U/L (14-36); Albumin 4.2 g/dL (3.5-5.0); Alkaline Phosphatase 92 U/L (38-126); Total Bilirubin 0.4 mg/dL (0.2-1.3)
[2024-04-10 22:40] LABS: Glucose,Whole Blood 102 mg/dL (70-110)
[2024-04-11] MEDS: SODIUM ZIRCONIUM CYCLOSILICATE 10 GM PACKET PO SCH (06:19)
[2024-04-11 07:53] LABS: Basophils % (A) 0 %; Eosinophils # (A) 0.3 k/uL (0-0.7); Eosinophils % (A) 3 %; HGB 10.5 gm/dL (11.4-16.0); Lymphocytes # (A) 2.6 k/uL (1.0-4.8); Lymphocytes % (A) 32 %; MCH 31.9 pg (25.0-35.0); MCHC 32.9 g/dL (31.0-37.0); MCV 97.1 fL (80.0-100.0); Mean Platelet Volume 8.5; Monocytes # (A) 0.4 k/uL (0-1.0); Monocytes % (A) 5 %; Neutrophils # (A) 4.8 k/uL (1.3-7.7); Neutrophils % (A) 58 %; Platelet Count 248 k/uL (150-450); RDW 15.1 % (11.5-15.5); WBC 8.2 k/uL (3.8-10.6)
[2024-04-11 08:17] LABS: ALT 15 U/L (4-34); AST 29 U/L (14-36); African American GFR (CKD) 41 (>60 ml/min/1.73 sqM); Albumin 3.9 g/dL (3.5-5.0); Alkaline Phosphatase 85 U/L (38-126); Anion Gap 8 mmol/L; Blood Urea Nitrogen 39 mg/dL (7-17); Calcium 9.5 mg/dL (8.4-10.2); Carbon Dioxide 22 mmol/L (22-30); Chloride 107 mmol/L (98-107); Glucose 80 mg/dL (74-99); Non-African American GFR(CKD) 35 (>60 ml/min/1.73 sqM); Potassium 5.3 mmol/L (3.5-5.1); Sodium 137 mmol/L (137-145); Total Bilirubin 0.4 mg/dL (0.2-1.3); Total Protein 6.3 g/dL (6.3-8.2)
[2024-04-11] MEDS: SODIUM CHLORIDE 0.9% 1,000 ML IV SCH (12:02)
[2024-04-11] MEDS: NICOTINE 7MG/24HR PATCH TRANSDERM SCH (12:11)
--- NOTE | 2024-04-11 13:38 | P.HPIM ---
History of Present Illness H&P Date: 04/11/24 Chief Complaint: Hyperkalemia Patient is a 68-year-old female with hypertension presented to the emergency department after being instructed to report to the emergency department for elevated potassium of 6.4. Patient was seen at bedside. Patient reported that her PCP instructed her to come to the ED for evaluation because her potassium was found to be elevated in routine lab work. Patient reports that she does have a history of high potassium but was never found to be this elevated in the past. Patient has been taking her medications as prescribed. She is currently on lisinopril 2.5 mg daily and hydrochlorothiazide 25 mg daily. She currently denies any acute symptoms at this time. Patient denies fever, chills, chest pain, palpitations, shortness of breath, nausea, vomiting, belly pain, dysuria, tingling or numbness sensation in the arms or legs. ED documentation reviewed. In the ED patient was treated with regular insulin 5 units IV x 1, dextrose 50 mL IV x 1 Vitals on admission temperature 98.2, pulse rate 82, respiratory rate 18, blood pressure 113/62, O2 sat 98% on room air EKG independently interpreted as sinus rhythm with occasional supraventricular premature complexes with ventricular rate of 69 bpm, right bundle branch block, QTc interval 416 ms Labs on admission show WBC 8.2, hemoglobin 10.5, hematocrit 32, platelet 248, sodium 137, potassium 5.3, chloride 107, carbon dioxide 22, BUN 39, creatinine 1.52, glucose 80 Review of systems: Pertinent positives and negatives as discussed in HPI, a complete review of systems was performed and all other systems are negative. PMH: Hypertension PSH: Left shoulder replacement FMH: Brother has a history of cancer Allergies: No known drug allergies Social history: Tobacco: Every day smoker Alcohol: No alcohol use Recreational drugs: No drug use Travel: No travel history Sick contacts: No sick contacts Physical examination: Vital signs reviewed General: nontoxic, no distress, appears at stated age Derm: warm, dry, intact Head: atraumatic, normocephalic, symmetric Eyes: EOMI, anicteric sclera Mouth: no lip lesion, mucus membranes moist Cardiovascular: S1 S2 reg, no murmur Lungs: CTA bilateral, no rhonchi, no rales, no accessory muscle use Abdominal: soft, non-tender to palpation Extremities: No cyanosis, clubbing, or pedal edema. Neuro: Alert,gross neurological examination did not reveal any focal deficits. Cranial nerves II to XII grossly intact. Bilateral upper and lower extremity muscle strength and sensation intact. Psych: well appearing, appropriate affect Assessment/Plan: Patient is a 68-year-old female with hypertension presented to the emergency department after being instructed to report to the emergency department for elevated potassium of 6.4. Patient will be admitted to internal medicine service. Active: #. Hyperkalemia EKG showed sinus rhythm with occasional supraventricular premature complexes 5 units of regular insulin given in the ED Initial potassium 6.3, now down to 5.3 Hold lisinopril 2.5 mg and hydrochlorothiazide 25 mg daily Initiate Lokelma 10 g 3 times daily Monitor morning BMP Continue cardiac monitoring #. Acute kidney injury Creatinine 1.52 Initiate normal saline at 100 cc an hour Monitor morning BMP #. Normocytic anemia Hemoglobin 10.5, MCV 97.1 Morning CBC Chronic: #. GERD #. Gout #. Hypertension Continue omeprazole 20 mg daily and allopurinol 100 mg daily Hold lisinopril 2.5 mg daily and hydrochlorothiazide 25 mg daily in setting of hyperkalemia F: No restrictions E: Replete as needed N: Renal diet A: Ambulatory DVT prophylaxis: Lovenox 30 mg subcu daily The patient is admitted with an anticipated less than 2 midnight stay for evaluation of hyperkalemia CODE STATUS: Full code Discussed with: Patient Anticipated discharge place: Home Past Medical History Past Medical History: Hypertension Additional Past Medical History / Comment(s): NECK FRACTURE. CERVICAL FUSION(2018 [facility]) History of Any Multi-Drug Resistant Organisms: None Reported Past Surgical History: Joint Replacement Additional Past Surgical History / Comment(s): LEFT SHOULDER REPLACEMENT Past Anesthesia/Blood Transfusion Reactions: No Reported Reaction Additional Past Anesthesia/Blood Transfusion Reaction / Comment(s): was hallucinating after cervical fusion Past Psychological History: No Psychological Hx Reported Smoking Status: Current every day smoker Past Alcohol Use History: Occasional Additional Past Alcohol Use History / Comment(s): HAS BEEN SMOKING < 1 PPD SINCE 2006 Past Drug Use History: None Reported - Past Family History Brother(s) Family Medical History: Cancer Medications and Allergies Home Medications Medication Instructions Recorded Confirmed Type Omeprazole [PriLOSEC] 20 mg PO DAILY 06/21/22 04/10/24 History Boswellia, Turmeric, Tart Campos 1 cap PO DAILY 04/10/24 04/10/24 History Supplement Dandelion Root 525 mg PO DAILY 04/10/24 04/10/24 History Bridgette Root 550mg 550 mg PO DAILY 04/10/24 04/10/24 History Lifetones (Uric Acid Support) 3 cap PO TID 04/10/24 04/10/24 History Supplement Moringa 2,000 mg PO DAILY 04/10/24 04/10/24 History allopurinoL [Zyloprim] 100 mg PO DAILY 04/10/24 04/10/24 History hydroCHLOROthiazide [Hydrodiuril] 25 mg PO DAILY 04/10/24 04/10/24 History lisinopriL [Zestril] 2.5 mg PO DAILY 04/10/24 04/10/24 History Allergies Allergy/AdvReac Type Severity Reaction Status Date / Time No Known Allergies Allergy Verified 04/10/24 15:28 Physical Exam Vitals: Vital Signs Temp Pulse Pulse Resp BP BP Pulse Ox 04/11/24 04:00 98.2 F 82 18 113/62 98 04/11/24 00:00 98.2 F 75 19 131/81 100 04/10/24 20:40 77 18 101/73 97 04/10/24 18:09 97.6 F 87 17 99/66 98 04/10/24 16:02 99.1 F 73 17 125/74 100 04/10/24 15:45 72 04/10/24 13:10 97.7 F 78 16 152/86 99 Intake and Output 04/10/24 04/11/24 04/11/24 22:59 06:59 14:59 Other: Voiding Method Toilet # Voids 2 Weight 50.349 kg 50.4 kg Results CBC & Chem 7: 04/11/24 06:58 04/11/24 06:58 Labs: Abnormal Lab Results - Last 24 Hours (Table) 04/10/24 04/10/24 04/10/24 Range/Units 13:42 13:42 16:51 RBC 3.50 L (3.80-5.40) m/uL Hgb 11.0 L (11.4-16.0) gm/dL Hct (34.0-46.0) % Potassium 6.3 H* (3.5-5.1) mmol/L Chloride 109 H 109 H (98-107) mmol/L BUN 42 H 40 H (7-17) mg/dL Creatinine 1.34 H 1.37 H (0.52-1.04) mg/dL Glucose 64 L (74-99) mg/dL 04/11/24 04/11/24 Range/Units 06:58 06:58 RBC 3.30 L (3.80-5.40) m/uL Hgb 10.5 L (11.4-16.0) gm/dL Hct 32.0 L (34.0-46.0) % Potassium 5.3 H (3.5-5.1) mmol/L Chloride (98-107) mmol/L BUN 39 H (7-17) mg/dL Creatinine 1.52 H (0.52-1.04) mg/dL Glucose (74-99) mg/dL Thrombosis Risk Factor Assmnt - Choose All That Apply Any of the Below Risk Factors Present?: No Each Risk Factor Represents 2 Points: Age 61-74 years Thrombosis Risk Factor Assessment Total Risk Factor Score: 2 Thrombosis Risk Factor Assessment Level: Low Risk
[2024-04-12] MEDS: PANTOPRAZOLE 40 MG TABLET PO SCH (06:27)
[2024-04-12 08:06] LABS: Basophils % (A) 0 %; Eosinophils # (A) 0.2 k/uL (0-0.7); Eosinophils % (A) 4 %; HCT 33.2 % (34.0-46.0); HGB 10.7 gm/dL (11.4-16.0); Lymphocytes % (A) 33 %; MCH 31.4 pg (25.0-35.0); MCHC 32.3 g/dL (31.0-37.0); MCV 97.2 fL (80.0-100.0); Monocytes # (A) 0.3 k/uL (0-1.0); Monocytes % (A) 5 %; Neutrophils # (A) 3.5 k/uL (1.3-7.7); Neutrophils % (A) 56 %; Platelet Count 232 k/uL (150-450); RBC 3.41 m/uL (3.80-5.40); RDW 14.7 % (11.5-15.5); WBC 6.2 k/uL (3.8-10.6)
[2024-04-12 08:14] LABS: African American GFR (CKD) 52 (>60 ml/min/1.73 sqM); Anion Gap 8 mmol/L; Blood Urea Nitrogen 33 mg/dL (7-17); Calcium 9.1 mg/dL (8.4-10.2); Carbon Dioxide 20 mmol/L (22-30); Chloride 112 mmol/L (98-107); Glucose 77 mg/dL (74-99); Non-African American GFR(CKD) 45 (>60 ml/min/1.73 sqM); Potassium 4.7 mmol/L (3.5-5.1); Sodium 140 mmol/L (137-145)
[2024-04-12] MEDS: ENOXAPARIN 30 MG/0.3 ML SYRINGE SQ SCH (08:38)
[2024-04-12] MEDS: allopurinoL 100 MG TAB PO SCH (08:38)
[2024-04-12 09:29] VITALS: RESP 17; TEMP 98.2
[2024-04-12 12:13] VITALS: BP 157/70; PULSE 60
--- NOTE | 2024-04-12 12:35 | P.DS ---
Providers Date of admission: 04/10/24 17:33 Expected date of discharge: 04/12/24 Attending physician: Alvin Bravo MD [facility] Course: Hospital course: Patient is a 68-year-old female with hypertension presented to the emergency department after being instructed to report to the ED for elevated potassium over 6.4. Patient was seen at bedside. She reported that her PCP instructed her to come to the ED for evaluation because her potassium was found to be elevated on routine lab work. She reports that she does have a history of high potassium but was never found to be this elevated in the past. Patient has been taking her medications as prescribed. She is currently on lisinopril 2.5 mg daily and hydrochlorothiazide 25 mg daily. She currently denies any acute complaints at this time. Patient denies fever, chills, chest pain, palpitations, shortness of breath, nausea, vomiting, belly pain, dysuria, tingling or numbness sensation in the arms or legs. Initial EKG showed sinus rhythm with occasional supraventricular premature complexes with ventricular rate of 69 bpm, right bundle branch block, QTc interval 460 ms. Labs on admission show WBC 8.2, hemoglobin 10.5, BUN 39, creatinine 1.52, potassium 5.3. Patient was started on sodium chloride at 100 cc an hour and Lokelma 10 g 3 times daily. Patient was seen on 04/12/2024 at bedside with no acute complaints. Patient's potassium level has come down to 4.7 this morning. Patient is stable to be discharged back home. Lisinopril 2.5 mg daily and hydrochlorothiazide 25 mg daily have been discontinued. Amlodipine 5 mg daily has been added to patient's home medication list. Patient is recommended to follow-up with her primary care physician in 1 to 3 days after discharge. Physical examination at discharge: GENERAL: This is a 68-year-old in no apparent distress at the time of examination. Pleasant and cooperative. HEENT: Head is atraumatic, normocephalic. Pupils are equal, round, and reactive to light. Sclerae anicteric. Conjunctivae are clear. Mucus membranes of the mouth are moist. Neck is supple. RESPIRATORY: Clear to auscultation. No wheezes, rales, or rhonchi. No use of accessory muscles. Patient maintaining oxygen saturation greater than 92%. No chest wall tenderness is noted on palpation or with deep breathing. CARDIOVASCULAR: Regular rate and rhythm. S1 and S2 noted. No systolic or diastolic murmur auscultated. No JVD noted. No S3 or S4 noted. GASTROINTESTINAL: No distention noted. Abdomen soft and round. Normal active bowel sounds auscultated x 4 quadrants. No pain or tenderness noted upon palpation. INTEGUMENTARY: No cyanosis. No jaundice. No rashes noted. No cellulitis noted. EXTREMITIES: 2+ peripheral pulses. No evidence of peripheral edema. No calf tenderness noted. NEUROLOGIC: Cranial nerves II-XII intact. PSYCHIATRIC: Awake, alert, and oriented X 3. Appropriate affect. Intact judgement and insight. Patient Condition at Discharge: Stable Plan - Discharge Summary Discharge Rx Participant: Yes New Discharge Prescriptions: New amLODIPine [Norvasc] 5 mg PO DAILY 30 Days #30 tab Continue Omeprazole [PriLOSEC] 20 mg PO DAILY Moringa 2,000 mg PO DAILY allopurinoL [Zyloprim] 100 mg PO DAILY Dandelion Root 525 mg PO DAILY Boswellia, Turmeric, Tart Campos Supplement 1 cap PO DAILY Bridgette Root 550mg 550 mg PO DAILY Lifetones (Uric Acid Support) Supplement 3 cap PO TID Discontinued lisinopriL [Zestril] 2.5 mg PO DAILY hydroCHLOROthiazide [Hydrodiuril] 25 mg PO DAILY Discharge Medication List Omeprazole [PriLOSEC] 20 mg PO DAILY 06/21/22 [History] Boswellia, Turmeric, Tart Campos Supplement 1 cap PO DAILY 04/10/24 [History] Dandelion Root 525 mg PO DAILY 04/10/24 [History] Bridgette Root 550mg 550 mg PO DAILY 04/10/24 [History] Lifetones (Uric Acid Support) Supplement 3 cap PO TID 04/10/24 [History] Moringa 2,000 mg PO DAILY 04/10/24 [History] allopurinoL [Zyloprim] 100 mg PO DAILY 04/10/24 [History] amLODIPine [Norvasc] 5 mg PO DAILY 30 Days #30 tab 04/12/24 [Rx] Follow up Appointment(s)/Referral(s): Kassandra Trejo MD [Primary Care Provider] - 1-2 days Discharge Disposition: HOME SELF-CARE
[2024-04-13] MEDS ORDERED: ENOXAPARIN 40 MG/0.4 ML SYRINGE SQ SCH (09:00)
== END 2024-04-12 13:14 | disposition home or self-care (01) | DRG 641 ==
LOC: EC 12:56 → 3SCARD 17:33
PROVIDERS: ADMIT Internal Medicine; ATTEND Internal Medicine
DX: E87.5 Hyperkalemia (principal); F17.210 Nicotine dependence, cigarettes, uncomplicated; I10 Essential (primary) hypertension; I45.10 Unspecified right bundle-branch block; Z98.1 Arthrodesis status; I49.1 Atrial premature depolarization; Z79.899 Other long term (current) drug therapy
CPT/HCPCS: 36415; 80048; 80053; 83735; 85025; 93005; 96374; 99285